=== PATIENT | female | born 1945 | race Asian ===

== ENCOUNTER 2016-10-18 16:12 | Emergency (ER) | payer OTHER ==
[~2016-10-18] VITALS: Ht 165.1 cm; Wt 57.3 kg
[2016-10-18 18:16] VITALS: BP 142/72
== END 2016-10-18 18:16 | disposition home or self-care (01) ==
LOC: ED 16:12
DX: I10 Essential (primary) hypertension (principal); E78.00 Pure hypercholesterolemia, unspecified; M81.0 Age-related osteoporosis without current pathological fracture

== ENCOUNTER 2017-05-06 11:30 | Emergency (ER) | payer OTHER ==
[~2017-05-06] VITALS: Ht 165.1 cm; Wt 54.6 kg
[2017-05-06 12:25] VITALS: BP 139/66
== END 2017-05-06 12:25 | disposition home or self-care (01) ==
LOC: ED 11:30
DX: I10 Essential (primary) hypertension (principal); E78.00 Pure hypercholesterolemia, unspecified; M81.0 Age-related osteoporosis without current pathological fracture

== ENCOUNTER 2017-10-18 16:16 | Emergency (ER) | payer OTHER ==
[~2017-10-18] VITALS: Ht 165.1 cm; Wt 56.2 kg
[2017-10-18 16:22] VITALS: Ht 165.1 cm; Wt 56.2 kg
[2017-10-18 17:30] LABS: BASOPHIL % 0.4 % (0-2); PLATELET COUNT 253 x10^3mcL (130-400); RED CELL DISTRIBUTION WIDTH 13.1 % (11.5-14.5)
[2017-10-18 18:10] LABS: ALBUMIN 3.8 g/dL (3.4-5.0); BILIRUBIN TOTAL 0.26 mg/dL (0.20-1.00); CALCIUM 9.1 mg/dL (8.5-10.1); CARBON DIOXIDE 29.6 mmol/L (21-32); CREATININE SERUM 1.3 mg/dL (0.6-1.0); MAGNESIUM 2.1 mg/dL (1.8-2.4); POTASSIUM SERUM 3.8 mmol/L (3.5-5.1); TOTAL PROTEIN, SERUM 7.4 g/dL (6.4-8.2)
[2017-10-18 19:24] VITALS: BP 136/79
== END 2017-10-18 19:24 | disposition home or self-care (01) ==
LOC: ED 16:16
PROVIDERS: Emergency Medicine
DX: R42 Dizziness and giddiness (principal); D64.9 Anemia, unspecified; N28.9 Disorder of kidney and ureter, unspecified; I10 Essential (primary) hypertension; E78.00 Pure hypercholesterolemia, unspecified; M81.0 Age-related osteoporosis without current pathological fracture
CPT/HCPCS: 36415; 83880

== ENCOUNTER 2017-10-31 19:13 | Emergency (ER) | payer OTHER ==
[2017-10-31 20:54] LABS: BASOPHIL % 0.6 % (0-2); PLATELET COUNT 258 x10^3mcL (130-400); RED CELL DISTRIBUTION WIDTH 13.4 % (11.5-14.5)
[2017-10-31 21:00] LABS: CALCIUM 9.2 mg/dL (8.5-10.1); CARBON DIOXIDE 30.5 mmol/L (21-32); POTASSIUM SERUM 3.6 mmol/L (3.5-5.1)
[2017-10-31 21:04] LABS: ALBUMIN 3.9 g/dL (3.4-5.0); BILIRUBIN TOTAL 0.4 mg/dL (0.20-1.00); TOTAL PROTEIN, SERUM 7.6 g/dL (6.4-8.2)
[2017-10-31 23:00] VITALS: BP 125/60
== END 2017-10-31 23:00 | disposition home or self-care (01) ==
LOC: ED 19:13
PROVIDERS: Emergency Medicine
DX: J01.90 Acute sinusitis, unspecified (principal); E86.0 Dehydration; E78.00 Pure hypercholesterolemia, unspecified; I10 Essential (primary) hypertension; R11.0 Nausea
CPT/HCPCS: 83880; J1885; J2405; J7030; Q0092

== ENCOUNTER 2017-11-02 15:55 | Emergency (ER) | payer OTHER ==
[~2017-11-02] VITALS: Ht 167.6 cm; Wt 55.3 kg
[2017-11-02 16:02] VITALS: Ht 167.6 cm; Wt 55.3 kg
[2017-11-02 16:38] LABS: CALCIUM 9.2 mg/dL (8.5-10.1); CARBON DIOXIDE 29.6 mmol/L (21-32); CREATININE SERUM 1.1 mg/dL (0.6-1.0); POTASSIUM SERUM 3.9 mmol/L (3.5-5.1)
[2017-11-02 16:40] LABS: BASOPHIL % 0.4 % (0-2); PLATELET COUNT 257 x10^3mcL (130-400); RED CELL DISTRIBUTION WIDTH 12.8 % (11.5-14.5)
[2017-11-02 16:43] LABS: BILIRUBIN TOTAL 0.5 mg/dL (0.20-1.00); TOTAL PROTEIN, SERUM 7.8 g/dL (6.4-8.2)
[2017-11-02 18:03] VITALS: BP 115/67
== END 2017-11-02 18:03 | disposition home or self-care (01) ==
LOC: ED 15:55
PROVIDERS: Emergency Medicine
DX: R10.13 Epigastric pain (principal); R11.0 Nausea; I10 Essential (primary) hypertension; E78.00 Pure hypercholesterolemia, unspecified; M81.0 Age-related osteoporosis without current pathological fracture
CPT/HCPCS: 36415; Q0162

== ENCOUNTER 2017-12-31 11:51 | Emergency (ER) | payer OTHER ==
[~2017-12-31] VITALS: Ht 165.1 cm; Wt 56.7 kg
[2017-12-31 11:56] VITALS: Ht 165.1 cm; Wt 56.7 kg
[2017-12-31 13:05] LABS: microscopic required? NO
[2017-12-31 13:25] LABS: BASOPHIL % 0.3 % (0-2); PLATELET COUNT 268 x10^3mcL (130-400); RED CELL DISTRIBUTION WIDTH 13.3 % (11.5-14.5)
[2017-12-31 13:37] LABS: ALBUMIN 3.8 g/dL (3.4-5.0); BILIRUBIN TOTAL 0.44 mg/dL (0.20-1.00); CALCIUM 9.5 mg/dL (8.5-10.1); CARBON DIOXIDE 27.6 mmol/L (21-32); CREATININE SERUM 1.1 mg/dL (0.6-1.0); POTASSIUM SERUM 3.6 mmol/L (3.5-5.1); T4(THYROXINE) 6.6 ug/dL (4.7-13.3); TOTAL PROTEIN, SERUM 7.5 g/dL (6.4-8.2)
[2017-12-31 14:29] LABS: UA SPECIFIC GRAVITY <=1.005 (1.005-1.035); urine erythrocyte NEGATIVE (NEGATIVE)
[2017-12-31 15:00] VITALS: BP 128/65
[2017-12-31 15:09] LABS: AMPHETAMINE QUAL UR NONE DETECTED (See below)
== END 2017-12-31 15:06 | disposition home or self-care (01) ==
LOC: ED 11:51
PROVIDERS: Emergency Medicine
DX: D64.9 Anemia, unspecified (principal); I10 Essential (primary) hypertension; R42 Dizziness and giddiness; E78.00 Pure hypercholesterolemia, unspecified; I45.10 Unspecified right bundle-branch block; H72.91 Unspecified perforation of tympanic membrane, right ear
CPT/HCPCS: 82962; 83880; J2550; Q0092

== ENCOUNTER 2018-01-03 01:26 | Emergency (ER) | payer OTHER ==
[~2018-01-03] VITALS: Ht 175.3 cm; Wt 57.6 kg
[2018-01-03 01:34] VITALS: Ht 175.3 cm; Wt 57.6 kg
[2018-01-03 03:30] VITALS: BP 136/78
== END 2018-01-03 03:30 | disposition home or self-care (01) ==
LOC: ED 01:26
DX: I10 Essential (primary) hypertension (principal); R42 Dizziness and giddiness

== ENCOUNTER 2018-02-24 18:41 | Emergency (ER) | payer OTHER ==
[~2018-02-24] VITALS: Ht 165.1 cm; Wt 58.2 kg
[2018-02-24 18:58] VITALS: Ht 165.1 cm; Wt 58.2 kg
[2018-02-24] MEDS ORDERED: PROTONIX40 MG (19:49)
[2018-02-24] MEDS ORDERED: DIOVAN320 MG (19:50)
[2018-02-24] MEDS ORDERED: HYDROCHLOROTHIA25 MG (19:50)
[2018-02-24] MEDS ORDERED: VERAPAMIL HCL180 M1 (19:51)
[2018-02-24] MEDS ORDERED: SIMVASTATIN20 M1 (19:52)
[2018-02-24] MEDS ORDERED: MULTI-VITAMINS1 TAB PO (19:52)
[2018-02-24] MEDS ORDERED: FERROUS SULFAT325 M2 (19:53)
[2018-02-24] MEDS ORDERED: FLUTICASON0.05 MG/Ac (19:54)
[2018-02-24 20:54] LABS: BASOPHIL % 0.4 % (0-2); PLATELET COUNT 280 x10^3mcL (130-400); RED CELL DISTRIBUTION WIDTH 12.9 % (11.5-14.5)
[2018-02-24 22:00] LABS: UA SPECIFIC GRAVITY <=1.005 (1.005-1.035); microscopic required? YES; urine erythrocyte TRACE (NEGATIVE)
[2018-02-24 22:22] LABS: CALCIUM 9.1 mg/dL (8.5-10.1); CARBON DIOXIDE 26.7 mmol/L (21-32); POTASSIUM SERUM 3.3 mmol/L (3.5-5.1)
[2018-02-24 22:27] LABS: ALBUMIN 3.8 g/dL (3.4-5.0); BILIRUBIN TOTAL 0.4 mg/dL (0.20-1.00); TOTAL PROTEIN, SERUM 7.5 g/dL (6.4-8.2)
[2018-02-24 23:30] VITALS: BP 136/54
== END 2018-02-24 23:30 | disposition home or self-care (01) ==
LOC: ED 18:41
PROVIDERS: Emergency Medicine
DX: R42 Dizziness and giddiness (principal); D64.9 Anemia, unspecified; E87.8 Other disorders of electrolyte and fluid balance, not elsewhere classified; I10 Essential (primary) hypertension; E78.00 Pure hypercholesterolemia, unspecified; M81.0 Age-related osteoporosis without current pathological fracture; R11.2 Nausea with vomiting, unspecified; R07.89 Other chest pain
CPT/HCPCS: J2550; J7030; Q0092